=== PATIENT | female | born 1965 | race Caucasian/White ===

== ENCOUNTER 2022-05-05 02:29 | Emergency (ER) | payer OTHER, SELFPAY ==
[2022-05-05 02:31] VITALS: BP 156/75; PULSE 73; RESP 16; TEMP 36.2; O2SAT 98
--- NOTE | 2022-05-05 03:57 | ED.BACK ---
HPI - Back Pain/Injury General Chief Complaint: Back Pain/Injury Stated Complaint: back pain Time Seen by Provider: 05/05/22 02:41 History of Present Illness HPI Narrative: Patient with history of back pain presents here because she has acute worsening of her back pain with some radiation down her right leg, she states that this was started when she was playing with her grandson over the weekend. Denies any numbness or weakness, it does hurt more when she walks, she has been trying to take NSAIDs at home with some improvement in her pain, no difficulty urinating. Related Data Home Medications Medication Instructions Recorded Confirmed [id number] each PO 06/21/19 01/07/22 20-250-50 mg(d)20-200-100 mg(n) tablets (Black Cohosh Menopause Complex) biotin 5 mg tablet mg PO 06/21/19 01/07/22 calcium citrate 250 mg PO BID 06/21/19 01/07/22 cholecalciferol (vitamin D3) 125 125 mcg PO DAILY 06/21/19 01/07/22 mcg (5,000 unit) capsule ferrous sulfate 325 mg (65 mg 325 mg PO DAILY 06/21/19 01/07/22 iron) tablet (Feosol) mecobalamin (vitamin B12) 1,000 1,000 mcg sublingual DAILY 06/21/19 01/07/22 mcg disintegrating tablet,sublingual multivitamin 1 tablet PO DAILY 06/21/19 01/07/22 thiamine HCl (vitamin B1) 100 mg 100 mg PO DAILY 06/21/19 01/07/22 tablet adapalene 0.3 % topical gel 1 applic topical QPM 01/22/20 01/07/22 desoximetasone 0.25 % topical cream 1 applic topical DAILY PRN 01/22/20 01/07/22 Allergies Allergy/AdvReac Type Severity Reaction Status Date / Time fluconazole Allergy Unknown Hives Verified 05/05/22 02:31 minocycline Allergy Unknown Hives Verified 05/05/22 02:31 Review of Systems Review of Systems: CONST: No fever. HEENT: No sore throat C/V: No chest pain RESP: No cough GI: No abdominal pain : No dysuria. M/S: Back pain to right leg SKIN: No rash. NEURO: [No headache or focal numbness or weakness] PSYCH: [No depression] [facility] [place] Past Medical History Medical History Abnormal finding of blood chemistry, unspecified Anxiety and depression Benign essential hypertension Bipolar affective disorder BMI 34.0-34.9,adult BMI 36.0-36.9,adult Chronic low back pain Elevated ferritin Elevated homocysteine Encounter for preventive health examination Encounter for routine adult health examination with abnormal findings Encounter for routine adult health examination without abnormal findings Hx of Sow's palsy Hyperlipidemia Hypothyroidism (acquired) 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 Paresthesia of both hands Harsh Rocha auricular syndrome Rash Vitamin D deficiency Surgical History Surgical History History of endometrial ablation Hx of gastric bypass Family History Family History Mother Hypertension Father Hypertension Family history of malignant melanoma Family history of lung cancer Grandparent Family history of malignant melanoma Sibling Family history of bipolar disorder Social History Social History Smoking status: Never smoker Alcohol intake: current Exam Narrative: EXAMINATION OF ORGAN SYSTEMS/BODY AREAS: Constitutional: Vital signs per nursing GENERAL: Appears slightly uncomfortable from pain HEAD: Normal with no signs of head trauma. EYES: EOMI, conjunctiva normal ENT: Hearing grossly intact LUNGS: Nonlabored breathing. HEART: [Regular rate and rhythm] ABD: [Soft], [nontender to palpation] EXT: Normal range of motion. Ambulating with normal gait albeit somewhat antalgic BACK: NO midline tenderness SKIN: [No rashes or lesions.] NEURO: [Alert and oriented x 3. No gross focal sensory or strength deficits.] PSYCH: Normal affect Course Vital Signs Vital signs: Vital Signs Temperature 97.1 F L 05/05/22 02:31 Pulse Rate 73 05/05/22 02:3
== END 2022-05-05 03:31 | disposition home or self-care (01) ==
PROVIDERS: Emergency Provider Emergency Medicine; PCP Internal Medicine
DX: M54.50 Low back pain, unspecified (principal); I10 Essential (primary) hypertension; E78.5 Hyperlipidemia, unspecified; E03.9 Hypothyroidism, unspecified; E55.9 Vitamin D deficiency, unspecified; F31.9 Bipolar disorder, unspecified; F41.9 Anxiety disorder, unspecified; Z98.84 Bariatric surgery status
CPT/HCPCS: 99283